=== PATIENT | male | born 1965 | race Caucasian/White ===

== ENCOUNTER 2017-12-25 21:33 | Emergency (ER) | payer OTHER ==
--- OUTSIDE RECORDS SUMMARY | 2017-12-25 21:34 | XMS REPORT ---
:1965 [facility] Address [address] [place] [address] Care Team Providers Name Role Phone Unavailable Unavailable Unavailable Problems This patient has no known problems. Allergies, Adverse Reactions, Alerts This patient has no known allergies or adverse reactions. Medications This patient has no known medications. Results Test Description Test Time Test Comments Text Results Atomic Results Result Comments MRI PELVIS W/WO (PROSTATE) CLINICAL INDICATION: C61 Malignant neoplasm of prostate, current PSA 11.7, recent biopsy June 2017.MODALITY: Siemens Skyra 3.0 Ema MRITECHNIQUE: T2 sagittal and axial, T1 axial, T1 coronal fat sat, STIR, diffusion and dynamic contrast enhanced imaging are performed. Quantitative analysis is performed with [email or web address]. IV contrast is administered, 17.0 ml Dotarem Dynamic post-contrast imaging with Weekend-a-gogoD quantitative analysis are accomplished.[id number] MR DynaCADIMPRESSION:No suspicious lesion is targeted at this time. No evidence of aggressive or extra prostatic malignancy.PI-RADS 1: Most probably benign.FINDINGS:COMPARISON: NoneNormal regional marrow signal is observed. No lytic or blastic osseous metastatic lesions.No common iliac, internal iliac, external iliac, inguinal or suspicious arlene-prostatic lymph nodes.Regional bowel appears unremarkable. No mural or intraluminal bladder mass. Anterior abdominal wall and pelvic floor are unremarkable. No evidence of ascites.Estimated prostate volume is 28.7 ml. No suspicious lesion is targeted at this time. Decreased signal intensity at the left lateral apex is not associated with significantly restricted diffusion on long B value images. No rapid enhancement or abnormal washout kinetics are noted.Seminal vesicles exhibit normal signal intensity. Neurovascular bundles are symmetric in appearance without definite tumor involvement. The prostate capsule is smooth in contour.
--- OUTSIDE RECORDS SUMMARY | 2017-12-25 21:34 | XMS REPORT | Clinical Summary ---
:1965 Author Organization [facility] Address [address] [place] [address] Care Team Providers Name Role Phone Rufina Nix Primary Care Provider Unavailable Allergies No Known Allergies Current Medications Prescription Sig. Disp. Refills Start Date End Date Status multivitamin with Take by mouth. Active iron (ONE DAILY MULTI-VIT W-MINERAL) tablet levoFLOXacin Take 1 tablet 5 tablet 0 12/10/2017 12/15/2017 (LEVAQUIN) 750 MG (750 mg total) by tablet mouth daily for 5 days. Take one tablet the night before procedure, then morning of procedure until gone. Active Problems No known active problems Encounters Date Type Specialty Care Team Description 12/10/2017 Telephone Urology Lucille Mcdonald Malignant neoplasm of prostate (Primary Dx) 12/10/2017 Orders Only Urology Chance Campbell MD 11/29/2017 Transcribe Orders Urology Chance Campbell MD Malignant neoplasm of prostate (Primary Dx) 11/25/2017 Office Visit Chance Crowder MD Malignant neoplasm of prostate (Primary Dx) after 12/24/2016 Social History Tobacco Use Types Packs/Day Years Used Date Never Smoker Smokeless Tobacco: Never Used Alcohol Use Drinks/Week oz/Week Comments Yes Sex Assigned at Date Recorded Not on file Last Filed Vital Signs Not on file Plan of Treatment Date Type Specialty Care Team Description 03/08/2018 Procedure visit Chance Crowder MD [address] [facility] [address] [place] [address] 03/08/2018 Office Visit Chance Crowder MD [address] [facility] [address] [place] [address] [phone] Health Maintenance Due Date Last Done Comments COLON CANCER SCREENING 2013 SHINGRIX VACCINE (#1) 2013 INFLUENZA VACCINE 03/02/2018 Results MRI Prostate Wwo Contrast (12/08/2017)after 12/24/2016 Insurance Payer Benefit Plan / Group Subscriber ID Type Phone Address [employer] A[employer] PPO OPEN CHOICE xxxxxxxxx PPO , [place]: [id number]
--- NOTE | 2017-12-26 00:11 | EDPHYS ---
Physician Documentation [facility] Name: Kelvin Mares Age: 52 yrs Sex: Male : 1965 Arrival Date: 12/25/2017 Time: 21:33 Bed 16 Private MD: Rudy Ronquillo HPI: 12/27 00:11 This 52 yrs old Male presents to ER via Ambulatory with complaints of pm1 Shoulder Injury. 00:11 The patient or guardian complains of pain. left shoulder. Context: The problem was pm1 sustained at home, resulted from lifting or carrying, Catching his mother's fall, The patient reports no decreased range of motion. The patient reports no obvious deformity. Onset: The symptoms/episode began/occurred today. Modifying factors: the symptoms are alleviated by remaining still, The symptoms are aggravated by movement. Associated signs and symptoms: Pertinent negatives: chest pain, Numbness in left arm Weakness in left arm. Severity of symptoms: in the emergency department the symptoms are unchanged. Treatment prior to arrival includes: no previous treatment. The patient has not experienced similar symptoms in the past. The patient has not recently seen a physician. Walking down steps with his mother and she started to fall, he caught her with his left arm and he started having pain to left shoulder. Patient with FROM but painful. Historical: - Allergies: 12/25 21:38 No Known Allergies; ea - Home Meds: 21:38 None [Active]; ea - PMHx: 21:38 None; ea - PSHx: 21:38 None; ea - Immunization history:: Adult Immunizations up to date. - Social history:: Smoking status: Patient/guardian denies using tobacco. - Ebola Screening: : No symptoms or risks identified at this time. ROS: 12/27 00:11 Constitutional: Negative for fever, chills, and weight loss, Eyes: Negative for injury, pm1 pain, redness, and discharge, ENT: Negative for injury, pain, and discharge, Neck: Negative for injury, pain, and swelling, Cardiovascular: Negative for chest pain, palpitations, and edema, Respiratory: Negative for shortness of breath, cough, wheezing, and pleuritic chest pain, Abdomen/GI: Negative for abdominal pain, nausea, vomiting, diarrhea, and constipation, Back: Negative for injury and pain. Skin: Negative for injury, rash, and discoloration, Neuro: Negative for headache, weakness, numbness, tingling, and seizure. MS/extremity: Positive for pain, of the anterior aspect of left shoulder. Exam: 00:11 Constitutional: This is a well developed, well nourished patient who is awake, alert, pm1 and in no acute distress. Head/Face: Normocephalic, atraumatic. Neck: Trachea midline, no thyromegaly or masses palpated, and no cervical lymphadenopathy. Supple, full range of motion without nuchal rigidity, or vertebral point tenderness. No Meningismus. Chest/axilla: Normal chest wall appearance and motion. Nontender with no deformity. No lesions are appreciated. Cardiovascular: Regular rate and rhythm with a normal S1 and S2. No gallops, murmurs, or rubs. Normal PMI, no JVD. No pulse deficits. Respiratory: Lungs have equal breath sounds bilaterally, clear to auscultation and percussion. No rales, rhonchi or wheezes noted. No increased work of breathing, no retractions or nasal flaring. Abdomen/GI: Soft, non-tender, with normal bowel sounds. No distension or tympany. No guarding or rebound. No evidence of tenderness throughout. Back: No spinal tenderness. No costovertebral tenderness. Full range of motion. Skin: Warm, dry with normal turgor. Normal color with no rashes, no lesions, and no evidence of cellulitis. 00:11 Musculoskeletal/extremity: Extremities: grossly normal except: noted in the anterior aspect of left shoulder, suproaspinatus insertion point tenderness: There is no evidence of decreased ROM, deformity. Vital Signs: 12/25 21:39 BP 150 / 96; Pulse 100; Resp 19; Temp 98.3; Pulse Ox 99% ; Weight 83.91 kg; Height 5 ea ft. 10 in. (177.80 cm); Pain 10/10; 12/26 00:30 BP 138 / 78; Pulse 80; Resp 18; Temp 98; Pulse Ox 98% on R/A; ea 12/25 21:39 Body Mass Index 26.54 (83.91 kg, 177.80 cm) ea MDM: 12/25 22:51 Patient medically screened. pm1 12/26 00:09 Data reviewed: vital signs. Data interpreted: Pulse oximetry: on room air is 99 %. pm1 Interpretation: normal. Counseling: I had a detailed discussion with the patient and/or guardian regarding: the historical points, exam findings, and any diagnostic results supporting the discharge/admit diagnosis, radiology results, the need for outpatient follow up, to return to the emergency department if symptoms worsen or persist or if there are any questions or concerns that arise at home. 12/25 21:42 Order name: XRAY Shoulder LEFT 2 view 12/26 00:09 Order name: Sling; Complete Time: 00:33 pm1 Administered Medications: 00:23 Drug: [place] 5 mg-325 mg 1 tabs Route: PO; ea 00:33 Follow up: Response: Medication administered at discharge. ea :23 Drug: Flexeril 10 mg Route: PO; ea 00:33 Follow up: Response: Medication administered at discharge. ea Disposition: 12/26/17 00:10 Discharged to Home. Impression: Strain of muscle(s) and tendon(s) of the rotator cuff of left shoulder. - Condition is Stable. - Discharge Instructions: Shoulder Pain, Arm Sling Use, Ghku-mg-Hcht, Shoulder Sprain. - Prescriptions for Tylenol- Codeine #3 300-30 mg Oral Tablet - take 2 tablets by ORAL route every 6 hours As needed; 20 tablet. Cyclobenzaprine 10 mg Oral Tablet - take 1 tablet by ORAL route every 8 hours As needed; 30 tablet. - Medication Reconciliation Form, Thank You Letter, Prescription Opioid Use form. - Follow up: Emergency Department; When: As needed; Reason: Worsening of condition. Follow up: Dontae Martinez MD; When: 2 - 3 days; Reason: Recheck today's complaints, Continuance of care, Re-evaluation by your physician. - Problem is new. - Symptoms have improved. Addendum: 12/28/2017 09:25 Co-signature as Attending Physician, Ruyd Lea MD I agree with the assessment and c spicer plan of care. Signatures: Dispatcher [employer] Rudy Trujillo MD MD cha Marinas, Patrick, EXECUTIVE LEGAL SECRETARY EXECUTIVE LEGAL SECRETARY pm1 Alesha Hillman RN RN ea Corrections: (The following items were deleted from the chart) 12/26 00:35 00:10 12/26/2017 00:10 Discharged to Home. Impression: Strain of muscle(s) and ea tendon(s) of the rotator cuff of left shoulder. Condition is Stable. Forms are Medication Reconciliation Form, Thank You Letter, Antibiotic Education, Prescription Opioid Use. Follow up: Emergency Department; When: As needed; Reason: Worsening of condition. Follow up: Dr. Dontae Martinez; When: 2 - 3 days; Reason: Recheck today's complaints, Continuance of care, Re-evaluation by your physician. Problem is new. Symptoms have improved. pm1
--- NOTE | 2017-12-26 00:11 | ER ---
Nurse's Notes [facility] Name: Kelvin Mares Age: 52 yrs Sex: Male : 1965 Arrival Date: 12/25/2017 Time: 21:33 Bed 16 Private MD: Diagnosis: Strain of muscle(s) and tendon(s) of the rotator cuff of left shoulder Presentation: 12/25 21:28 Risk Assessment: Do you want to hurt yourself or someone else? Patient reports no ea desire to harm self or others. Initial Sepsis Screen: Does the patient meet any 2 criteria? No. Patient's initial sepsis screen is negative. Does the patient have a suspected source of infection? No. Patient's initial sepsis screen is negative. 21:36 Presenting complaint: Patient states: Reports he attempted to catch another person and ea felt sharp pain to left shoulder. Transition of care: patient was not received from another setting of care. Onset of symptoms was December 25, 2017. Care prior to arrival: Medication(s) given: Motrin, 3 minutes ago. 21:36 Method Of Arrival: Ambulatory ea 21:36 Acuity: JANES 4 ea 21:36 Acuity: JANES 3 ea Triage Assessment: 21:38 General: Appears uncomfortable, Behavior is calm, cooperative, appropriate for age. ea Pain: Complains of pain in anterior aspect of left shoulder Pain does not radiate. Pain currently is 10 out of 10 on a pain scale. Quality of pain is described as aching. Musculoskeletal: Range of motion: limited in left shoulder. Injury Description:. Historical: - Allergies: 21:38 No Known Allergies; ea - Home Meds: 21:38 None [Active]; ea - PMHx: 21:38 None; ea - PSHx: 21:38 None; ea - Immunization history:: Adult Immunizations up to date. - Social history:: Smoking status: Patient/guardian denies using tobacco. - Ebola Screening: : No symptoms or risks identified at this time. Screenin/27 00:15 Fall Risk None identified. ea 00:34 Abuse screen: Denies threats or abuse. Nutritional screening: No deficits noted. ea Tuberculosis screening: No symptoms or risk factors identified. Assessment: 00:30 General: Appears uncomfortable, Behavior is calm, cooperative, appropriate for age. ea Pain: Complains of pain in left shoulder. Neuro: Level of Consciousness is awake, alert, obeys commands, Oriented to person, place, time, situation. Cardiovascular: Patient's skin is warm and dry. Respiratory: Airway is patent Respiratory effort is even, unlabored, Respiratory pattern is regular, symmetrical. GI: No signs and/or symptoms were reported involving the gastrointestinal system. : No signs and/or symptoms were reported regarding the genitourinary system. Derm: Skin is pink, warm \T\ dry. Musculoskeletal: Range of motion: limited in left shoulder. Vital Signs: 12/25 21:39 BP 150 / 96; Pulse 100; Resp 19; Temp 98.3; Pulse Ox 99% ; Weight 83.91 kg; Height 5 ea ft. 10 in. (177.80 cm); Pain 05/11; 12/26 00:30 BP 138 / 78; Pulse 80; Resp 18; Temp 98; Pulse Ox 98% on R/A; ea 12/25 21:39 Body Mass Index 26.54 (83.91 kg, 177.80 cm) ea ED Course: 12/25 21:33 Patient arrived in ED. ds1 21:38 Triage completed. ea 21:43 Alesha Hillman, RN is Primary Nurse. ea 22:42 XRAY Shoulder LEFT 2 view In Process Unspecified. EDMS 22:51 Wilmer Piña NP is PHCP. pm1 22:51 Rudy Lea MD is Attending Physician. pm1 12/26 00:10 Dontae Martinez MD is Referral Physician. pm1 00:30 Placed in gown. Bed in low position. Call light in reach. Side rails up X2. ea 00:30 Arm band placed on right wrist. ea 00:35 No provider procedures requiring assistance completed. Patient did not have IV access ea during this emergency room visit. Administered Medications: 00:23 Drug: [place] 5 mg-325 mg 1 tabs Route: PO; ea 00:33 Follow up: Response: Medication administered at discharge. ea 00:23 Drug: Flexeril 10 mg Route: PO; ea 00:33 Follow up: Response: Medication administered at discharge. ea Outcome: 00:10 Discharge ordered by . pm1 00:35 Patient left the ED. ea 00:35 Discharged to home ambulatory, with significant other. ea 00:35 Condition: improved 00:35 Discharge instructions given to patient, Instructed on discharge instructions, follow up and referral plans. medication usage, Demonstrated understanding of instructions, follow-up care, medications, Prescriptions given X 2. Signatures: Dispatcher [employer] Candi Burgos ds1 Wilmer Piña, ORDER PROCESSING SPECIALIST ORDER PROCESSING SPECIALIST pm1 Alehsa Hillman RN RN ea
[2017-12-26] MEDS ORDERED: CYCLOBENZAPRINE 10 MG TAB ONE (00:26)
[2017-12-26] MEDS ORDERED: HYDROCODONE/APAP 5/325 MG TAB ONE (00:27)
--- NOTE | 2017-12-26 08:56 | RAD REPORT ---
EXAM DESCRIPTION: RAD - Shoulder Left 2 View - 12/25/2017 10:42 pm CLINICAL HISTORY: Shoulder trauma, acute onset pain COMPARISON: June 2017 TECHNIQUE: Internal and external rotation views of the left shoulder were obtained. FINDINGS: No dislocation and no acute fracture changes present. Patient has degenerative change at t he AC joint with inferiorly directed spurring. Acromial humeral joint space is narrowed. This may be slightly worse than the prior study though positioning is slightly different between the examinations . Correlation is needed with any exam findings or history that would indicate chronic rotator cuff te ar. No abnormal soft tissue calcifications no acute findings of the ribs or lung parenchyma in the up per left chest. IMPRESSION: No fracture or dislocation at the shoulder joint. AC joint degenerative change and suspected chronic rotator cuff tear.
== END 2017-12-26 00:35 | disposition home or self-care (01) ==
LOC: ER 21:33
DX: S46.012A Strain of muscle(s) and tendon(s) of the rotator cuff of left shoulder, initial encounter (principal); X50.9XXA Other and unspecified overexertion or strenuous movements or postures, initial encounter; Y93.9 Activity, unspecified
CPT/HCPCS: 99283